=== PATIENT | female | born 1990 | race Asian ===

== ENCOUNTER 2018-05-27 15:54 | Emergency (ER) | payer OTHER ==
[~2018-05-27] VITALS: Ht 160 cm; Wt 49.9 kg
[2018-05-27 17:12] VITALS: BP 112/78; TEMP 99
== END 2018-05-27 17:12 | disposition home or self-care (01) ==
LOC: ED 15:54
DX: J11.1 Influenza due to unidentified influenza virus with other respiratory manifestations (principal); R50.9 Fever, unspecified
CPT/HCPCS: 87502; 87651; 99283

== ENCOUNTER 2019-05-07 15:17 | Emergency (ER) | payer OTHER ==
[~2019-05-07] VITALS: Ht 160 cm; Wt 49.9 kg
[2019-05-07 16:31] LABS: PLATELET COUNT 269 K/uL (152-353)
[2019-05-07 16:53] LABS: POTASSIUM 3.8 mmol/L (3.6-5.2)
[2019-05-07 19:30] VITALS: BP 122/99
== END 2019-05-07 19:30 | disposition short-term general hospital (02) ==
LOC: ED 15:17
PROVIDERS: Emergency Medicine
DX: R10.31 Right lower quadrant pain (principal); Z32.01 Encounter for pregnancy test, result positive
CPT/HCPCS: 80053; 81000; 81025; 85027; 99283; 99285

== ENCOUNTER 2019-05-07 19:40 | Outpatient (CLI) | payer OTHER | END 2019-05-07 20:28 | disposition short-term general hospital (02) | LOC: AMB 19:40 | DX: R10.31 Right lower quadrant pain (principal); O46.90 Antepartum hemorrhage, unspecified, unspecified trimester; Z32.01 Encounter for pregnancy test, result positive | CPT/HCPCS: A0425; A0429 ==

== ENCOUNTER 2021-01-10 03:29 | Emergency (ER) | payer OTHER ==
[~2021-01-10] VITALS: Ht 157.5 cm; Wt 46.3 kg
[2021-01-10] MEDS ORDERED: CYPROHEPTADINE H4 MG PO (03:37)
[2021-01-10 04:19] VITALS: BP 118/70; TEMP 99
== END 2021-01-10 04:19 | disposition home or self-care (01) ==
LOC: ED 03:29
DX: K02.9 Dental caries, unspecified (principal); Z86.16 Personal history of COVID-19
CPT/HCPCS: 99282

== ENCOUNTER 2021-12-05 22:13 | Emergency (ER) | payer OTHER ==
[~2021-12-05] VITALS: Ht 157.5 cm; Wt 52.2 kg
[~2021-12-05 22:13] MED LIST: CYPROHEPTADINE H4 MG PO
[2021-12-05 22:54] VITALS: BP 154/87; TEMP 98.9
[2021-12-05 23:57] LABS: PLATELET COUNT 317 K/uL (152-353)
[2021-12-06 00:02] LABS: POTASSIUM 3.5 mmol/L (3.6-5.2)
== END 2021-12-06 01:10 | disposition home or self-care (01) ==
LOC: ED 22:13
PROVIDERS: Emergency Medicine
DX: R11.0 Nausea (principal); H61.23 Impacted cerumen, bilateral
CPT/HCPCS: 36415; 80048; 81002; 81015; 85027; 99282

== ENCOUNTER 2022-04-05 22:05 | Emergency (ER) | payer OTHER ==
[~2022-04-05] VITALS: Ht 157.5 cm; Wt 54.4 kg
[2022-04-05 23:28] LABS: PLATELET COUNT 298 K/uL (152-353)
[2022-04-06 01:52] VITALS: BP 132/81; TEMP 98.7
== END 2022-04-06 01:50 | disposition home or self-care (01) ==
LOC: ED 22:05
PROVIDERS: Family Medicine
DX: K52.89 Other specified noninfective gastroenteritis and colitis (principal); N20.0 Calculus of kidney
CPT/HCPCS: 36415; 80053; 81002; 81025; 82150; 83690; 85027; 99283

== ENCOUNTER 2022-05-13 21:55 | Emergency (ER) | payer OTHER ==
[~2022-05-13] VITALS: Ht 157.5 cm; Wt 54.4 kg
[2022-05-13 22:34] LABS: PLATELET COUNT 282 K/uL (152-353)
[2022-05-13 22:50] LABS: POTASSIUM 3.4 mmol/L (3.6-5.2); SODIUM 138 mmol/L (136-145)
[2022-05-13 23:20] LABS: PARTIAL THROMBOPLASTIN TIME 25.1 SECONDS (24.5-33.6)
[2022-05-14 01:05] VITALS: BP 113/69; TEMP 98.1
== END 2022-05-14 01:10 | disposition home or self-care (01) ==
LOC: ED 21:55
PROVIDERS: Emergency Medicine
DX: K21.9 Gastro-esophageal reflux disease without esophagitis (principal)
CPT/HCPCS: 36415; 80053; 83690; 84484; 85027; 85379; 85610; 85730; 93005; 96374; 96375; 99284; J2270; J2405; J3490

== ENCOUNTER 2022-05-22 06:22 | Emergency (ER) | payer OTHER ==
[~2022-05-22] VITALS: Ht 157.5 cm; Wt 53.5 kg
[2022-05-22 07:37] LABS: POTASSIUM 3.2 mmol/L (3.6-5.2)
[2022-05-22 07:42] LABS: PLATELET COUNT 330 K/uL (152-353)
[2022-05-22 08:10] VITALS: BP 127/80; TEMP 99.1
== END 2022-05-22 08:10 | disposition home or self-care (01) ==
LOC: ED 06:22
PROVIDERS: Emergency Medicine Emergency Medical Services
DX: R42 Dizziness and giddiness (principal); E87.6 Hypokalemia
CPT/HCPCS: 36415; 80048; 81002; 81025; 83735; 85027; 93005; 96360; 99284

== ENCOUNTER 2022-05-30 13:18 | Emergency (ER) | payer OTHER ==
[~2022-05-30] VITALS: Ht 157.5 cm; Wt 51.3 kg
[2022-05-30 13:30] VITALS: BP 144/81; TEMP 99
== END 2022-05-30 15:57 | disposition home or self-care (01) ==
LOC: ED 13:18
DX: R07.81 Pleurodynia (principal); R07.89 Other chest pain; Z98.890 Other specified postprocedural states
CPT/HCPCS: 81002; 93005; 99283; J2270; J2405

== ENCOUNTER 2022-07-29 01:07 | Emergency (ER) | payer OTHER ==
[~2022-07-29] VITALS: Ht 157.5 cm; Wt 51.3 kg
[2022-07-29 01:53] LABS: PLATELET COUNT 527 K/uL (152-353)
[2022-07-29 02:06] LABS: POTASSIUM 3.9 mmol/L (3.6-5.2)
[2022-07-29 05:00] VITALS: BP 131/79; TEMP 98.9
== END 2022-07-29 05:00 | disposition home or self-care (01) ==
LOC: ED 01:07
PROVIDERS: Emergency Medicine Emergency Medical Services
DX: R10.2 Pelvic and perineal pain (principal); Z90.711 Acquired absence of uterus with remaining cervical stump
CPT/HCPCS: 36415; 80048; 81000; 82150; 83690; 85027; 85610; 96361; 96374; 99284; J1170; J2405